=== PATIENT | female | born 1990 | race African-American/Black ===

== ENCOUNTER 2018-03-08 13:16 | Emergency (ER) | payer MEDICAID, OTHER ==
[~2018-03-08] VITALS: Ht 152.4 cm; Wt 70.0 kg
[2018-03-08] MEDS ORDERED: IBUPROFEN 600MG TABLET PO ONE (18:30)
[2018-03-08 18:47] VITALS: BP 144/79
== END 2018-03-08 19:00 | disposition home or self-care (01) ==
LOC: ER 13:16
DX: M79.674 Pain in right toe(s) (principal); M25.561 Pain in right knee
CPT/HCPCS: 99283

== ENCOUNTER 2021-01-18 22:06 | Emergency (ER) | payer SELFPAY ==
[~2021-01-18] VITALS: Ht 152.4 cm; Wt 66.7 kg
[2021-01-18 23:33] LABS: BASOPHILS % 0.8 % (0.0-2.0); EOSINOPHILS % 0.9 % (0.0-5.0); HEMATOCRIT. 29.6 % (36.0-48.0); HEMOGLOBIN. 9.2 g/dL (12.0-16.0); LYMPHOCYTES % 45.5 % (20.0-50.0); MEAN CORPUSCULAR HEMOGLOBIN 23.4 pg (28.0-32.0); MEAN CORPUSCULAR VOLUME 75.7 fL (81.0-99.0); MEAN PLATELET VOLUME 6.6 fl (7.4-10.4); NEUTROPHILS % 43.8 % (40.0-76.0); PLATELET 568 x1000/uL (130-400); RED BLOOD CELL COUNT 3.91 mill/uL (4.2-5.4); RED CELL DISTRIBUTION WIDTH 18.3 % (11.6-14.6)
[2021-01-18 23:39] LABS: CHLORIDE 110 mEq/L (98-107)
[2021-01-18 23:42] LABS: PROTHROMBIN TIME 10.5 sec (9.6-11.0)
[2021-01-19] MEDS ORDERED: POTASSIUM CHLORIDE 20MEQ TABLET SR PO SCH (00:15)
[2021-01-19 01:10] VITALS: BP 142/99
[2021-01-19] MEDS ORDERED: FERR325T6 MT (01:12)
== END 2021-01-19 01:45 | disposition home or self-care (01) ==
LOC: ER 22:06
DX: N93.9 Abnormal uterine and vaginal bleeding, unspecified (principal); D25.9 Leiomyoma of uterus, unspecified; N83.202 Unspecified ovarian cyst, left side
CPT/HCPCS: 36415; 76830; 76856; 80053; 81025; 85025; 86850; 86900; 99284

== ENCOUNTER 2021-06-17 15:34 | Emergency (ER) | payer SELFPAY ==
[~2021-06-17] VITALS: Ht 152.4 cm; Wt 75.0 kg
[~2021-06-17 15:34] MED LIST: FERR325T6 MT
[2021-06-17 15:48] VITALS: BP 128/79
[2021-06-17] MEDS ORDERED: IBUPROFEN 800MG TABLET PO ONE (16:00)
[2021-06-17] MEDS ORDERED: NAPR500T7 MT (17:50)
[2021-06-17] MEDS ORDERED: IBUP-2028 MT (18:50)
== END 2021-06-17 18:55 | disposition home or self-care (01) ==
LOC: ER 15:34
DX: S83.8X2A Sprain of other specified parts of left knee, initial encounter (principal); S93.492A Sprain of other ligament of left ankle, initial encounter; S43.492A Other sprain of left shoulder joint, initial encounter; S90.32XA Contusion of left foot, initial encounter; W18.2XXA Fall in (into) shower or empty bathtub, initial encounter; Y93.E1 Activity, personal bathing and showering; Y92.012 Bathroom of single-family (private) house as the place of occurrence of the external cause
CPT/HCPCS: 73030; 73560; 73610; 73630; 99284

== ENCOUNTER 2021-08-10 19:21 | Emergency (ER) | payer MEDICAID ==
[~2021-08-10] VITALS: Ht 162.6 cm; Wt 67.0 kg
[~2021-08-10 19:21] MED LIST changes: +IBUP-2028 MT
[2021-08-10 21:05] LABS: BASOPHILS % 1.3 % (0.0-2.0); EOSINOPHILS % 1.3 % (0.0-5.0); HEMATOCRIT. 26.7 % (36.0-48.0); HEMOGLOBIN. 7.9 g/dL (12.0-16.0); LYMPHOCYTES % 45.7 % (20.0-50.0); MEAN CORPUSCULAR HEMOGLOBIN 18.9 pg (28.0-32.0); MEAN PLATELET VOLUME 6.4 fl (7.4-10.4); NEUTROPHILS % 43.7 % (40.0-76.0); PLATELET 469 x1000/uL (130-400); RED BLOOD CELL COUNT 4.18 mill/uL (4.2-5.4)
[2021-08-10 21:07] LABS: CHLORIDE 110 mEq/L (98-107)
[2021-08-10] MEDS ORDERED: SODIUM CHLORIDE 0.9% 1,000 ML IV ONE (21:15)
[2021-08-10] MEDS ORDERED: NAPROXEN 375MG TABLET PO ONE (21:15)
[2021-08-10 21:16] LABS: ETHANOL BLOOD < 10 mg/dL
[2021-08-10 21:18] LABS: HCG SCREEN NEGATIVE
[2021-08-10 22:00] LABS: PLATELET ESTIMATE INCREASED
[2021-08-11] MEDS ORDERED: IBUP-2028 MT (01:57)
[2021-08-11 06:20] VITALS: BP 137/78
== END 2021-08-11 06:21 | disposition home or self-care (01) ==
LOC: ER 19:21
DX: S09.8XXA Other specified injuries of head, initial encounter (principal); M25.512 Pain in left shoulder; W01.0XXA Fall on same level from slipping, tripping and stumbling without subsequent striking against object, initial encounter; Y93.89 Activity, other specified; Y92.89 Other specified places as the place of occurrence of the external cause; Y99.8 Other external cause status
CPT/HCPCS: 36415; 70450; 72070; 72100; 72125; 73030; 80053; 80320; 83605; 83690; 84484; 84703; 85025; 96360; 99285; J7030; G0480

== ENCOUNTER 2021-10-10 16:21 | Emergency (ER) | payer MEDICAID, OTHER ==
[~2021-10-10] VITALS: Ht 165.1 cm; Wt 64.0 kg
[2021-10-10 16:28] VITALS: BP 132/86
== END 2021-10-10 18:17 | disposition left against medical advice (07) ==
LOC: ER 16:21
DX: R51.9 Headache, unspecified (principal); R10.9 Unspecified abdominal pain; M54.89 Other dorsalgia; Z98.84 Bariatric surgery status; Y04.0XXA Assault by unarmed brawl or fight, initial encounter; Y07.03 Male partner, perpetrator of maltreatment and neglect; Y93.89 Activity, other specified; Y92.488 Other paved roadways as the place of occurrence of the external cause
CPT/HCPCS: 99283

== ENCOUNTER 2021-11-19 21:33 | Emergency (ER) | payer MEDICAID, OTHER ==
[~2021-11-19] VITALS: Ht 152.4 cm; Wt 64.0 kg
[2021-11-20] MEDS ORDERED: IBUPROFEN 600MG TABLET PO ONE
[2021-11-20 03:42] VITALS: BP 126/83
== END 2021-11-20 03:44 | disposition home or self-care (01) ==
LOC: ER 21:33
DX: M79.671 Pain in right foot (principal); Z98.84 Bariatric surgery status; Y00.XXXA Assault by blunt object, initial encounter; Y07.03 Male partner, perpetrator of maltreatment and neglect; Y93.89 Activity, other specified; Y92.018 Other place in single-family (private) house as the place of occurrence of the external cause
CPT/HCPCS: 73610; 73630; 99284

== ENCOUNTER 2021-12-27 11:39 | Emergency (ER) | payer MEDICAID, OTHER ==
[~2021-12-27] VITALS: Ht 167.6 cm; Wt 71.0 kg
[2021-12-27 11:45] VITALS: BP 139/73
[2021-12-27] MEDS ORDERED: ACETAMINOPHEN 325MG TABLET PO ONE (13:00)
[2021-12-27] MEDS ORDERED: IBUPROFEN 800MG TABLET PO ONE (13:00)
[2021-12-27] MEDS ORDERED: CELE100C MT (14:44)
== END 2021-12-27 15:06 | disposition home or self-care (01) ==
LOC: ER 11:39
DX: S06.0X9A Concussion with loss of consciousness of unspecified duration, initial encounter (principal); V19.9XXA Pedal cyclist (driver) (passenger) injured in unspecified traffic accident, initial encounter; Y93.89 Activity, other specified; Y92.89 Other specified places as the place of occurrence of the external cause; Y99.8 Other external cause status
CPT/HCPCS: 71101; 72100; 99284

== ENCOUNTER 2022-10-10 05:47 | Emergency (ER) | payer MEDICAID ==
[~2022-10-10] VITALS: Ht 152.4 cm; Wt 71.9 kg
[~2022-10-10 05:47] MED LIST changes: +CELE100C MT
[2022-10-10 05:54] VITALS: BP 146/90; O2SAT 100
[2022-10-10] MEDS ORDERED: BENZ200C52 MT (06:43)
[2022-10-10 06:50] VITALS: PULSE 80; RESP 18; TEMP 98.6
== END 2022-10-10 07:01 | disposition home or self-care (01) ==
LOC: ER 05:47
DX: R05.9 Cough, unspecified (principal); R06.02 Shortness of breath; Z98.890 Other specified postprocedural states
CPT/HCPCS: 71045; 93005; 99283

== ENCOUNTER 2022-10-26 09:52 | Emergency (ER) | payer MEDICAID ==
[~2022-10-26] VITALS: Ht 170.2 cm; Wt 64.0 kg
[~2022-10-26 09:52] MED LIST changes: +BENZ200C52 MT
[2022-10-26 09:56] VITALS: BP_DIAS 92; PULSE 79; RESP 15; TEMP 98.2; O2SAT 100
[2022-10-26] MEDS ORDERED: ACETAMINOPHEN 325MG TABLET PO ONE (10:15)
[2022-10-26 10:26] VITALS: BP_SYST 149
[2022-10-30] MEDS ORDERED: HYDR10TA34 MT (19:41)
== END 2022-10-26 10:43 | disposition home or self-care (01) ==
LOC: ER 09:52
DX: F41.0 Panic disorder [episodic paroxysmal anxiety] (principal); M79.10 Myalgia, unspecified site; Z98.890 Other specified postprocedural states
CPT/HCPCS: 99283

== ENCOUNTER 2023-04-04 19:36 | Emergency (ER) | payer MEDICAID, OTHER ==
[~2023-04-04] VITALS: Ht 152.4 cm; Wt 67.0 kg
[~2023-04-04 19:36] MED LIST changes: +HYDR10TA34 MT
[2023-04-04 19:44] VITALS: BP 147/86; PULSE 97; RESP 16; TEMP 100.4; O2SAT 94
[2023-04-04] MEDS ORDERED: SODIUM CHLORIDE 0.9% 1,000 ML IV ONE (21:30)
[2023-04-04] MEDS ORDERED: METOCLOPRAMIDE HCL 10MG/2ML VIAL IV ONE (22:45)
== END 2023-04-04 23:10 | disposition left against medical advice (07) ==
LOC: ER 19:36
DX: R51.9 Headache, unspecified (principal); Z00.00 Encounter for general adult medical examination without abnormal findings
CPT/HCPCS: 99283; 96360; J7030

== ENCOUNTER 2023-08-20 08:06 | Emergency (ER) | payer OTHER ==
[~2023-08-20] VITALS: Ht 172.7 cm; Wt 88.0 kg
[2023-08-20 08:20] VITALS: O2SAT 99
[2023-08-20] MEDS: LIDOCAINE 5% PATCH TOP SCH (08:38)
[2023-08-20 09:53] LABS: CLARITY URINE CLOUDY (CLEAR); COLOR URINE DARK YELLOW (YELLOW); GLUCOSE URINE NEGATIVE (NEGATIVE); KETONES URINE TRACE (NEGATIVE); LEUKOCYTE ESTERASE URINE 1+ (NEGATIVE); NITRITE URINE POSITIVE (NEGATIVE); OCCULT BLOOD URINE 1+ (NEGATIVE); PH URINE 5.5 (4.5-8.0); PROTEIN URINE TRACE (NEGATIVE)
[2023-08-20] MEDS: CYCLOBENZAPRINE 10MG TABLET PO ONE (10:08)
[2023-08-20 10:11] LABS: SQUAMOUS EPITHELIAL CELL URINE 3+ /lpf (RARE/1+)
[2023-08-20 10:12] LABS: BACTERIA URINE 3+
[2023-08-20 10:13] LABS: RBC URINE 0-2 /hpf (0-2)
[2023-08-20 11:57] LABS: UCG SCREEN NEGATIVE
[2023-08-20] MEDS ORDERED: SULF1TAB48 MT (12:23)
[2023-08-20 13:49] VITALS: BP 134/87; PULSE 84; RESP 20; TEMP 98.3
== END 2023-08-20 15:31 | disposition home or self-care (01) ==
LOC: ER 08:06
DX: M54.50 Low back pain, unspecified (principal); N39.0 Urinary tract infection, site not specified; F41.9 Anxiety disorder, unspecified; F31.9 Bipolar disorder, unspecified; Z79.899 Other long term (current) drug therapy
CPT/HCPCS: 81003; 81025; 99283

== ENCOUNTER 2023-08-30 10:06 | Emergency (ER) | payer OTHER ==
[~2023-08-30] VITALS: Ht 165.1 cm; Wt 65.0 kg
[~2023-08-30 10:06] MED LIST changes: +SULF1TAB48 MT
[2023-08-30 10:07] VITALS: BP 136/96; PULSE 72; RESP 16; O2SAT 98
[2023-08-30] MEDS ORDERED: KETOROLAC 60MG/2ML VIAL IM ONE (11:00)
== END 2023-08-30 11:30 | disposition left against medical advice (07) ==
LOC: ER 11:02
DX: G89.29 Other chronic pain (principal); M54.59 Other low back pain; M54.2 Cervicalgia; M54.16 Radiculopathy, lumbar region; F41.9 Anxiety disorder, unspecified; F31.9 Bipolar disorder, unspecified
CPT/HCPCS: 99283

== ENCOUNTER 2023-09-12 23:00 | Emergency (ER) | payer OTHER ==
[~2023-09-12] VITALS: Ht 160 cm; Wt 81.0 kg
[2023-09-12 23:26] VITALS: O2SAT 99
[2023-09-13] MEDS: KETOROLAC 30MG/ML VIAL IV STA (07:55)
[2023-09-13 07:59] LABS: HEMOGLOBIN. 9.2 g/dL (12.0-16.0); MEAN CORPUSCULAR HEMOGLOBIN 18.9 pg (28.0-32.0); MEAN CORPUSCULAR HGB CONC 29.6 g/dL (31.0-37.0); MEAN CORPUSCULAR VOLUME 64.1 fL (81.0-99.0); MEAN PLATELET VOLUME 6.3 fl (7.4-10.4); PLATELET 587 x1000/uL (130-400); RED BLOOD CELL COUNT 4.84 mill/uL (4.2-5.4); RED CELL DISTRIBUTION WIDTH 20.5 % (11.6-14.6); WHITE BLOOD COUNT 17.8 x1000/uL (4.5-11.0)
[2023-09-13 08:06] LABS: CHLORIDE 100 mEq/L (98-107); POTASSIUM 3.4 mEq/L (3.5-5.1); SODIUM 134 mEq/L (136-145)
[2023-09-13 08:07] LABS: CARBON DIOXIDE 25 mEq/L (21-32)
[2023-09-13 08:12] LABS: CREATININE 0.8 mg/dL (0.6-1.0); DIFFERENTIAL COMMENT 1; GLUCOSE 82 mg/dL (70-105)
[2023-09-13 08:13] LABS: CALCIUM 9.5 mg/dL (8.7-10.4); UREA NITROGEN BLOOD 12 mg/dL (9-23)
[2023-09-13 08:14] LABS: ALANINE AMINOTRANSFERASE 19 IU/L (10-49); ALBUMIN 4.6 g/dL (3.2-4.8); ASPARTATE AMINOTRANSFERASE 21 IU/L (<34); BILIRUBIN DIRECT 0.3 mg/dL (<=3.0)
[2023-09-13 08:15] LABS: BILIRUBIN TOTAL 0.6 mg/dL (0.1-1.0); PROTEIN TOTAL 7.8 g/dL (6.0-8.3)
[2023-09-13 08:58] LABS: HCG SCREEN NEGATIVE
[2023-09-13] MEDS ORDERED: VANCOMYCIN 1000MG/250ML 250 ML IV SCH (10:45)
[2023-09-13] MEDS: AMPICILLIN SOD/SULBACTAM NA 3 G in SODIUM CHLORIDE 0.9% 100 ML IV SCH (10:45)
[2023-09-13 11:06] LABS: ANISOCYTOSIS 2+; HYPOCHROMASIA 1+; MICROCYTOSIS 4+; PLATELET ESTIMATE INCREASED
[2023-09-13 11:07] LABS: OVALOCYTES 1+
[2023-09-13 14:35] VITALS: BP 129/86; PULSE 78; RESP 16; TEMP 98.2
[2023-09-13] MEDS ORDERED: IOHEXOL-300 100 ML BOTTLE ONE (15:11)
== END 2023-09-13 14:40 | disposition short-term general hospital (02) ==
LOC: ER 23:00
DX: K12.2 Cellulitis and abscess of mouth (principal); R59.0 Localized enlarged lymph nodes; F41.9 Anxiety disorder, unspecified; F31.9 Bipolar disorder, unspecified; Z79.899 Other long term (current) drug therapy
CPT/HCPCS: 99285; 96365; 70491; 71045; 96375; 80076; 80048; 84703; 87430; 83605; 85025; 87040; 36415; 87070; Q9967; J0295; J1885; J3370; J7050

== ENCOUNTER 2024-07-04 21:03 | Emergency (ER) | payer OTHER ==
[~2024-07-04] VITALS: Ht 152.4 cm; Wt 65.0 kg
[2024-07-04 21:09] VITALS: O2SAT 100
[2024-07-04 22:35] VITALS: BP 164/84; PULSE 88; RESP 16; TEMP 37; O2SAT 99
== END 2024-07-05 02:14 | disposition home or self-care (01) ==
LOC: ER 21:03
DX: S09.8XXA Other specified injuries of head, initial encounter (principal); E11.9 Type 2 diabetes mellitus without complications; F31.9 Bipolar disorder, unspecified; F41.9 Anxiety disorder, unspecified; Z79.1 Long term (current) use of non-steroidal anti-inflammatories (NSAID); W22.8XXA Striking against or struck by other objects, initial encounter; Y93.89 Activity, other specified; Y92.89 Other specified places as the place of occurrence of the external cause; Y99.8 Other external cause status
CPT/HCPCS: 70450; 99284; Z7610

== ENCOUNTER 2024-09-27 19:21 | Emergency (ER) | payer OTHER ==
[~2024-09-27] VITALS: Ht 172.7 cm; Wt 76.0 kg
[2024-09-27 19:41] VITALS: O2SAT 100
[2024-09-27 20:00] VITALS: BP 164/98; PULSE 85; RESP 18; TEMP 37; O2SAT 100
== END 2024-09-27 21:29 | disposition left against medical advice (07) ==
LOC: ER 19:21
DX: M79.641 Pain in right hand (principal); F41.9 Anxiety disorder, unspecified; F31.9 Bipolar disorder, unspecified; Z53.21 Procedure and treatment not carried out due to patient leaving prior to being seen by health care provider